=== PATIENT | female | born 1985 | race Caucasian/White ===

== ENCOUNTER 2019-12-20 12:09 | Emergency (ER) | payer OTHER ==
[~2019-12-20] VITALS: Ht 162.6 cm; Wt 61.8 kg
--- NOTE | 2019-12-20 15:15 | NUR ---
FAXED MRI SCREENING FORM TO MRI
--- NOTE | 2019-12-20 16:03 | NUR ---
PER KARELY FLORES, MRI WAS PAGED. SPOKE WITH XRAY TO SEE IF THEY COULD HELP FACILITATE THE MRI
--- NOTE | 2019-12-20 16:09 | NUR ---
PER SENIOR PATIENT ACCOUNT REPRESENTATIVEGET BASS, I CALLED THE NURSING POWER SYSTEM DISPATCHER TO HELP FACILITATE THE MRI
--- NOTE | 2019-12-20 17:00 | NUR ---
PT BACK FROM MRI.
[2019-12-20 17:01] VITALS: BP 141/91
[2019-12-21] MEDS ORDERED: GADOTERATE MEGLUMINE 7.5 MMOL/15 ML VIAL IV ONE (19:58)
== END 2019-12-20 17:35 | disposition home or self-care (01) ==
LOC: ER 12:09
DX: H57.12 Ocular pain, left eye (principal); R51.9 Headache, unspecified; H53.8 Other visual disturbances; Z88.0 Allergy status to penicillin
CPT/HCPCS: 70543; 99285; A9575